=== PATIENT | male | born 1990 | race Caucasian/White ===

== ENCOUNTER 2024-03-18 16:08 | Emergency (ER) | payer MEDICAID, SELFPAY ==
[2024-03-18 16:22] VITALS: BP 181/119; PULSE 81; RESP 16; TEMP 36.6; O2SAT 99; BMI 28.8
--- NOTE | 2024-03-18 17:23 | ED_ITS ---
HPI - Extremity Problem General: Chief complaint: Extremity Injury, Upper Stated complaint: Pain in right arm Time Seen by Provider: 03/18/24 16:19 History of Present Illness: 33-year-old male patient comes in today with right elbow pain and numbness running down his arm. Patient also reports some chest discomfort with movement. Patient appears nontoxic. Patient does have a history of high blood pressure. Patient reports pain is exacerbated with movement. Patient reports no fever. Patient is supposed to be on blood pressure medication but does not take it. Related Data Previous Rx's Medication Instructions Recorded lisinopril 10 1 tab PO DAILY #30 tabs 03/18/24 mg-hydrochlorothiazide 12.5 mg tablet Allergies Allergy/AdvReac Type Severity Reaction Status Date / Time No Known Allergies Allergy Verified 03/18/24 16:28 Review of Systems General: Reports: 10 or more systems reviewed and unremarkable except in HPI and below Musc: Reports: extremity pain Physical Exam Const: COMMON NORMALS: alert HENMT: COMMON NORMALS: normocephalic HEAD & SCALP: normocephalic Neck/C-Spine: COMMON NORMALS: full ROM Resp: COMMON NORMALS: normal respiratory effort and clear to auscultation bilaterally AUSCULTATION: clear to auscultation bilaterally Cardio: COMMON NORMALS: regular rate and regular rhythm RATE: regular rate RHYTHM: regular rhythm Back/Pelvis: COMMON NORMALS: thoracic and lumbar spine normal to inspection Extremity: NARRATIVE EXTREMITY EXAM: Normal range of motion of the right upper extremity. No tenderness is noted on palpation. Pulses and sensation are intact. Neuro: SENSORIUM/ORIENTATION: Yes alert Course Vital Signs: Vital signs: Vital Signs Temperature 97.9 F 03/18/24 16:22 Pulse Rate 81 03/18/24 16:22 Respiratory Rate 16 03/18/24 16:22 Blood Pressure 181/119 03/18/24 16:22 Pulse Oximetry 99 03/18/24 16:22 Oxygen Delivery Me thod Room Air 03/18/24 16:22 MDM - Extremity (Nontraumatic) Medical Decision Making 33-year-old male patient comes in today for evaluation of right arm pain. On exam patient appears nontoxic. Patient appears no acute distress. Respirations are even lungs are clear to auscultation. Differential diagnosis includes but not limited to tennis elbow, golfer's elbow, cervical radiculopathy, muscle strain, osteoarthritis, uncontrolled hypertension, arrhythmia. EKG showed a sinus rhythm without any ST elevation or ectopy. Chest x-ray noted no significant abnormalities. Elbow x-ray was normal. Believe patient might have some uncontrolled hypertension recommended lisinopril/hydrochlorothiazide and recommended follow-up with primary care for reevaluation. Patient also is a type I diabetic and manages it with diet. Discussed that a lot of her neuropathies and carpal tunnel like syndromes may be increased in someone with diabetes. Recommended good control of blood glucose and follow-up for further evaluation at primary care office. Patient and spouse both reported understanding agreed to plan. XR interpretation done by ED provider, pending radiology final review EKG Data EKG 1: I personally reviewed and interpreted this EKG as follows: EKG interpretation date: 03/18/24 EKG interpretation time: 17:48 Prior EKG tracings: not available for review Interpretation: EKG shows a sinus rhythm with regular rate [address] elevation or ectopy is noted. No prior exam was available for comparison. Computer generated interpretation: Sinus rhythm. Possible left atrial enlargement. Possible left ventricular hypertrophy. Abnormal EKG. Unconfirmed report. Discharge Plan Discharge Patient Disposition: Home Clinical Impression: Hypertension, uncontrolled Elbow joint pain Qualifiers: Laterality: right Qualified Code(s): M25.521 - Pain in right elbow Condition: Stable Prescriptions: New lisinopril-hydrochlorothiazide 10-12.5 mg tablet 1 tab PO DAILY Qty: 30 2RF Discharge Orders: Discharge ED (Routine); Ordered 03/18/24 Ordered By: Zackery Henderson Discharge Diet: Usual diet Discharge Activity: Increase activity as tolerated Patient Instructions: Musculoskeletal Pain (ED), Hypertension (ED) Activity Restrictions/Additional Instructions: Follow-up with primary care in 2 to 3 weeks for recheck. Activity as tolerated. Use acetaminophen or ibuprofen to help with pain. Use ice packs for further pain relief. Return to ER for worsening symptoms such as increased shortness of breath, severe chest pain, or new concerns. Coding Level of Care Code ED Utility Division Project Manager for Bhargavi Yu
--- NOTE | 2024-03-18 17:27 | XRR_ITS ---
PROCEDURE INFORMATION: Exam: XR Right Elbow Exam date and time: 03/18/2024 5:33 PM Age: 33 years old Clinical indication: Pain; Elbow; Right; Additional info: Elbow pain TECHNIQUE: Imaging protocol: Radiologic exam of the right elbow. Views: 3 or more views. COMPARISON: No relevant prior studies available. FINDINGS: Bones/joints: Normal. Soft tissues: Normal. XR/XR elbow RT min 3V* [id number] IMPRESSION: No acute findings.
--- NOTE | 2024-03-18 17:27 | XRR_ITS ---
PROCEDURE INFORMATION: Exam: XR Chest Exam date and time: 03/18/2024 5:33 PM Age: 33 years old Clinical indication: Pain; Chest pressure; Additional info: Chest, rib pain, no injury TECHNIQUE: Imaging protocol: Radiologic exam of the chest. Views: 1 view. COMPARISON: No relevant prior studies available. FINDINGS: Lungs: The lungs are adequately expanded. No focal consolidations or pulmonary edema. Pleural spaces: No pleural effusions or pneumothorax. Heart/Mediastinum: No cardiomegaly. Bones/joints: No acute fractures. XR/XR chest 1V portable [id number] IMPRESSION: No acute pulmonary disease.
--- NOTE | 2024-03-18 17:27 | ECG_ITS ---
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 Measurements Intervals [place] Rate: 85 P: 24 CO: 141 QRS: -7 QRSD: 94 T: 33 QT: 349 QTc: 417 Interpretive Statements SINUS RHYTHM POSSIBLE LEFT ATRIAL ENLARGEMENT [-0.1mV P-WAVE IN V1/V2] POSSIBLE LEFT VENTRICULAR HYPERTROPHY [VOLTAGE CRITERIA PLUS LAE OR QRS WIDENING] No previous ECG available for comparison Electronically Signed On 03-19-2024 7:52:05 CDT by Korey Looney M.D. [id number]
== END 2024-03-18 18:14 | disposition home or self-care (01) ==
PROVIDERS: Emergency Provider Nurse Practitioner Family
DX: M25.521 Pain in right elbow (principal); I10 Essential (primary) hypertension
CPT/HCPCS: 71045; 73080; 93005; 99284